=== PATIENT | female | born 1945 ===

== ENCOUNTER 2016-09-13 13:00 | Outpatient (RCR) | payer OTHER | END 2016-10-04 | disposition home or self-care (01) | LOC: PTY 13:00 | DX: M11.261 Other chondrocalcinosis, right knee (principal); M81.0 Age-related osteoporosis without current pathological fracture; Z90.710 Acquired absence of both cervix and uterus | CPT/HCPCS: 97035; 97110; 97140; 97161; G0283 ==

== ENCOUNTER 2016-10-10 14:30 | Outpatient (RCR) | payer OTHER | END 2016-11-04 | disposition home or self-care (01) | LOC: PTY 14:30 | DX: M11.261 Other chondrocalcinosis, right knee (principal) | CPT/HCPCS: 97035; 97110; 97140; G0283 ==

== ENCOUNTER → 2016-12-05 | Outpatient (RCR) | payer OTHER | END | disposition home or self-care (01) | LOC: PTY 11-07 14:00 | DX: M11.261 Other chondrocalcinosis, right knee (principal) | CPT/HCPCS: 97035; 97110; 97140; G0283 ==